=== PATIENT | female | born 1995 | race Hispanic/Latino ===

== ENCOUNTER 2019-08-13 | Emergency (ER) | payer SELFPAY ==
[2019-08-13 09:24] LABS: URINE BILIRUBIN - DIPSTICK NEGATIVE (NEGATIVE); URINE BLOOD DIPSTICK NEGATIVE (NEGATIVE); URINE GLUCOSE - DIPSTICK NEGATIVE (NEGATIVE); URINE KETONE NEGATIVE (NEGATIVE); URINE LEUK ESTERASE NEGATIVE (NEGATIVE); URINE NITRITE - DIPSTICK NEGATIVE (Negative); URINE PROTEIN - DIPSTICK NEGATIVE (NEG-TRACE); URINE SPECIFIC GRAVITY <=1.005; URINE UROBILINOGEN - DIPSTICK 0.2 E.U./dL (0.2)
[2019-08-13 09:25] LABS: HEMATOCRIT 45.8 % (37.0-47.0); HEMOGLOBIN 14.9 g/dl (12.0-16.0); IMMATURE GRANULOCYTES 0.9 % (0.0-5.0); MEAN CELL VOLUME 93.5 fL CALC (80.0-100.0); MEAN CORPUSCULAR HGB 30.4 pG CALC (26.0-32.0); MEAN CORPUSCULAR HGB CONC 32.5 g/L CALC (32.0-36.0); NEUT# 8.77 thou/uL (2.00-7.15); RED BLOOD COUNT 4.9 mill/uL (4.20-5.60); RED CELL DISTRI WIDTH 13.4 % (11.5-15.5); URINE COLOR STRAW
[2019-08-13 09:46] LABS: ALBUMIN 5.3 g/dL (3.2-5.0); ALKALINE PHOSPHATASE 116 u/l (38-126); ANION GAP 18 (6-22 (CALC)); BILIRUBIN, TOTAL 0.4 mg/dL (0.0-1.4); BUN 14 mg/dL (7-17); BUN/CREATININE RATIO 23 (12-20 (CALC)); CARBON DIOXIDE 24 mmol/l (22-30); CHLORIDE 104 mmol/l (95-108); CREATININE 0.6 mg/dL (0.5-1.0); GFR > 60 ML/MIN (>=60 (CALC)); GFR FOR AFR.AMER. > 60 ML/MIN (>=60 (CALC)); POTASSIUM 4.5 mmol/l (3.5-5.1); SGOT/AST 39 u/l (14-36); SODIUM 141 mmol/l (137-146); TOTAL PROTEIN 9.4 g/dL (6.3-8.2)
[2019-08-13] MEDS ORDERED: PROTONIX40 M2 PO ×2 (11:23)
[2019-08-13] MEDS ORDERED: ONDANSETRON4 MG PO ×2 (11:23)
== END 2019-08-13 11:38 | disposition home or self-care (01) | DRG 392 ==
DX: K29.70 Gastritis, unspecified, without bleeding (principal)
CPT/HCPCS: Q9967

== ENCOUNTER 2020-02-28 19:01 | Emergency (ER) | payer SELFPAY ==
[~2020-02-28] VITALS: Ht 149.9 cm; Wt 59.1 kg
[~2020-02-28 19:01] MED LIST: ONDANSETRON4 MG PO; PROTONIX40 M2 PO
[2020-02-28 19:50] LABS: HEMATOCRIT 41.2 % (37.0-47.0); IMMATURE GRANULOCYTES 1.1 % (0.0-5.0); MEAN CELL VOLUME 94.3 fL CALC (80.0-100.0); MEAN CORPUSCULAR HGB 29.5 pG CALC (26.0-32.0); MEAN CORPUSCULAR HGB CONC 31.3 g/dL CAL (32.0-36.0); NEUT# 8.46 thou/uL (2.00-7.15); RED BLOOD COUNT 4.37 mill/uL (4.20-5.60); RED CELL DISTRI WIDTH 13.4 % (11.5-15.5)
[2020-02-28 19:51] LABS: HEMOGLOBIN 12.9 g/dl (12.0-16.0)
[2020-02-28 20:05] LABS: ALBUMIN 4.6 g/dL (3.2-5.0); ALKALINE PHOSPHATASE 119 u/l (38-126); ANION GAP 13 (6-22 (CALC)); BILIRUBIN, TOTAL 0.3 mg/dL (0.0-1.4); BUN 10 mg/dL (7-17); BUN/CREATININE RATIO 17 (12-20 (CALC)); CARBON DIOXIDE 25 mmol/l (22-30); CHLORIDE 105 mmol/l (95-108); CREATININE 0.6 mg/dL (0.5-1.0); GFR > 60 ML/MIN (>=60 (CALC)); GFR FOR AFR.AMER. > 60 ML/MIN (>=60 (CALC)); POTASSIUM 3.9 mmol/l (3.5-5.1); SGOT/AST 34 u/l (14-36); SODIUM 139 mmol/l (137-146)
[2020-02-28 20:14] LABS: TOTAL PROTEIN 7.5 g/dL (6.3-8.2)
[2020-02-28 20:30] LABS: URINE BILIRUBIN - DIPSTICK NEGATIVE (NEGATIVE); URINE BLOOD DIPSTICK NEGATIVE (NEGATIVE); URINE COLOR YELLOW; URINE GLUCOSE - DIPSTICK NEGATIVE (NEGATIVE); URINE KETONE NEGATIVE (NEGATIVE); URINE LEUK ESTERASE NEGATIVE (NEGATIVE); URINE NITRITE - DIPSTICK NEGATIVE (Negative); URINE PROTEIN - DIPSTICK NEGATIVE (NEG-TRACE); URINE SPECIFIC GRAVITY <=1.005; URINE UROBILINOGEN - DIPSTICK 0.2 E.U./dL (0.2)
[2020-02-28] MEDS ORDERED: VOLTAREN75 MG PO (20:46)
[2020-02-28 21:37] VITALS: BP 143/90
== END 2020-02-28 21:38 | disposition home or self-care (01) | DRG 552 ==
LOC: ED 19:01
PROVIDERS: Family Medicine
DX: M54.5 Low back pain (principal)

== ENCOUNTER 2022-06-25 13:19 | Emergency (ER) | payer SELFPAY ==
[~2022-06-25] VITALS: Ht 149.9 cm; Wt 68.4 kg
[~2022-06-25 13:19] MED LIST changes: +VOLTAREN75 MG PO
[2022-06-25 13:28] VITALS: BP 117/83
[2022-06-25 13:30] VITALS: BP 117/84
[2022-06-25 14:00] VITALS: BP 115/80
[2022-06-25] MEDS ORDERED: MOTRIN800 MG PO (14:23)
[2022-06-25] MEDS ORDERED: TAM75CAP PO (14:23)
[2022-06-25 14:30] VITALS: BP 113/65
== END 2022-06-25 14:33 | disposition home or self-care (01) | DRG 866 ==
LOC: ED 13:19
DX: B34.9 Viral infection, unspecified (principal); Z20.822 Contact with and (suspected) exposure to COVID-19